=== PATIENT | male | born 1990 | race Caucasian/White ===

== ENCOUNTER 2021-09-18 08:05 | Emergency (ER) | payer OTHER ==
[~2021-09-18] VITALS: Ht 185.4 cm; Wt 79.4 kg
[~2021-09-18 08:05] MED LIST: BENADRYL25 MG PO
[2021-09-18 08:41] LABS: INFLUENZA A ANTIGEN Negative (Negative); INFLUENZA B ANTIGEN Negative (Negative)
[2021-09-18 08:43] VITALS: BP 116/78
== END 2021-09-18 08:45 | disposition home or self-care (01) ==
LOC: M.ERS 08:05
PROVIDERS: Family Medicine
DX: J06.9 Acute upper respiratory infection, unspecified (principal); Z20.822 Contact with and (suspected) exposure to COVID-19